=== PATIENT | male | born 1995 | race Caucasian/White ===

== ENCOUNTER 2017-03-13 23:14 | Emergency (ER) | payer OTHER ==
[~2017-03-13] VITALS: Ht 180.3 cm; Wt 86.5 kg
[2017-03-13 23:19] VITALS: TEMP 37.2; Ht 180.3 cm; Wt 86.5 kg
[2017-03-13] MEDS ORDERED: KETOROLAC TROMETHAMINE 30 MG/ML VIAL IV STA (23:40)
[2017-03-13] MEDS ORDERED: ONDANSETRON INJ 2 MG/ML 2 ML VIAL IV STA (23:40)
[2017-03-13 23:57] VITALS: O2SAT 100
--- NOTE | 2017-03-13 23:59 | EMERGENCY ROOM VISIT NOTE ---
History Report prepared by Romie: Shukri Shepherd Under the Supervision of: Dr. Peggy Palacios D.O. First contact with patient: 23:24 Chief Complaint: ABDOMINAL PAIN Stated Complaint: PELVIC PAIN - NAUSEA - STOMACH PAIN - WEAK History of Present Illness The patient is a 21 year old male who presents to the Emergency Room with complaints of constant abdominal pain beginning two days ago. The patient states that he has been really sick the past two days. He reports that when he stands for a while, he develops pelvic pain, nausea, hot flashes, cold flashes, and diarrhea. The patient states he must sit upright for his symptoms to be alleviated. He notes that his throat is sore when he coughs. He states that he eats but does not feel hungry, and it does not hurt when he eats. The patient denies abnormal discharge from his penis, back pain, constipation, dysuria, urinary symptoms, and strain in the past couple days. He also denies a history of STIs, UTIs, and hernias. The patient does describe a pimple on the scrotum that has been producing pus. The patient states that he does not have a history of health problems. Source of History: patient Onset: two days ago Position: abdomen Timing: constant Modifying Factors (Relieving): other (sitting upright) Associated Symptoms: + chills, + sorethroat (when coughing), + cough, + nausea, + diarrhea, No back pain, No urinary symptoms Note: Associated symptoms: pelvic pain, decreased appetite, and hot flashes Denies: abnormal discharge from his penis, constipation, and strain in the past couple days. Review of Systems See HPI for pertinent positives & negatives. A total of 10 systems reviewed and were otherwise negative. Past Medical & Surgical Medical Problems: (1) No Known Active Medical Problems Family History Patient reports no known family medical history. Social History Smoking Status: Never Smoker Smokeless Tobacco Use: No Alcohol Use: none Marital Status: in relationship Occupation Status: employed Current/Historical Medications Scheduled Sulfamethoxazole-Trimethoprim (Bactrim Ds 800MG/160MG), 1 TAB PO BID Allergies Coded Allergies: No Known Allergies (Unverified , 03/13/17) Physical Exam Vital Signs Date Time Temp Pulse Resp B/P (MAP) Pulse Ox O2 Delivery O2 Flow Rate FiO2 03/14/17 03:43 105 22 121/75 96 03/14/17 02:30 96 18 109/55 97 Room Air 03/14/17 02:00 96 18 117/67 97 Room Air 03/14/17 01:44 101 18 105/44 97 Room Air 03/14/17 01:16 102 18 104/49 97 Room Air 03/14/17 00:08 96 18 99/58 100 Room Air 03/14/17 00:00 101 03/13/17 23:57 100 Room Air 03/13/17 23:19 37.2 109 18 113/61 98 Room Air Physical Exam HEENT: Head - normocephalic and atraumatic Pupils are equal, round, and reactive to light. Extraocular eye muscles are intact, and sclera are anicteric. Nose - moist nasal mucosa without discharge. Mouth - moist buccal mucosa. Oropharynx is nonerythematous and there is no tonsillar exudate or edema noted. Neck: Supple; no JVD, nuchal rigidity, cervical lymphadenopathy. Heart: Tachycardic rate and regular rhythm. There is a normal S1 and S2 with no murmurs, clicks, or gallops appreciated. Lungs: Clear to auscultation bilaterally with no wheezes, rales, or rhonchi. Abdomen: Soft, and nondistended, with good bowel sounds. There is mild periumbilical pain with palpation. There are no palpable pulsatile masses or hepatosplenomegaly. There is no guarding, rigidity, or rebound noted. Genital: Lymphadenopathy and pain bilaterally to the inguinal canal, unremarkable penis. Left scrotum: Erythema, edema, indurated, hot with palpable fluid collection with a mueller. No pain with palpation to the right testicle and epididymis. Mild pain to palpation to the left testicle and epididymis. Extremities: No evidence of cyanosis, clubbing, or edema. There are easily palpable peripheral pulses. Skin: hot and diaphoretic with good turgor and no rashes. Medical Decision & Procedures Laboratory Results 03/13/17 23:58 Red Blood Count 4.85, Mean Corpuscular Volume 85.8, Mean Corpuscular Hemoglobin 30.1, Mean Corpuscular Hemoglobin Concent 35.1, Mean Platelet Volume 8.6, Neutrophils (%) (Auto) 82.4, Lymphocytes (%) (Auto) 8.6, Monocytes (%) (Auto) 8.4, Eosinophils (%) (Auto) 0.2, Basophils (%) (Auto) 0.1, Neutrophils # (Auto) 13.82, Lymphocytes # (Auto) 1.45, Monocytes # (Auto) 1.41, Eosinophils # (Auto) 0.04, Basophils # (Auto) 0.01 03/13/17 23:58 Test 03/13/17 23:46 03/13/17 23:58 03/14/17 00:07 Urine Color DK YELLOW Urine Appearance CLEAR (CLEAR) Urine pH 6.0 (4.5-7.5) Urine Specific Rickreall 1.035 (1.000-1.030) Urine Protein 1+ (NEG) Urine Glucose (UA) NEG (NEG) Urine Ketones 3+ (NEG) Urine Occult Blood 1+ (NEG) Urine Nitrite NEG (NEG) Urine Bilirubin NEG (NEG) Urine Urobilinogen NEG (NEG) Urine Leukocyte Esterase NEG (NEG) Urine WBC (Auto) 1-5 /hpf (0-5) Urine RBC (Auto) 0-4 /hpf (0-4) Urine Hyaline Casts (Auto) 1-5 /lpf (0-5) Urine Epithelial Cells (Auto) 10-20 /lpf (0-5) Urine Bacteria (Auto) NEG (NEG) White Blood Count 16.78 K/uL (4.8-10.8) Red Blood Count 4.85 M/uL (4.7-6.1) Hemoglobin 14.6 g/dL (14.0-18.0) Hematocrit 41.6 % (42-52) Mean Corpuscular Volume 85.8 fL (80-100) Mean Corpuscular Hemoglobin 30.1 pg (25-34) Mean Corpuscular Hemoglobin Concent 35.1 g/dl (32-36) Platelet Count 227 K/uL (130-400) Mean Platelet Volume 8.6 fL (7.4-10.4) Neutrophils (%) (Auto) 82.4 % Lymphocytes (%) (Auto) 8.6 % Monocytes (%) (Auto) 8.4 % Eosinophils (%) (Auto) 0.2 % Basophils (%) (Auto) 0.1 % Neutrophils # (Auto) 13.82 K/uL (1.4-6.5) Lymphocytes # (Auto) 1.45 K/uL (1.2-3.4) Monocytes # (Auto) 1.41 K/uL (0.11-0.59) Eosinophils # (Auto) 0.04 K/uL (0-0.5) Basophils # (Auto) 0.01 K/uL (0-0.2) RDW Standard Deviation 40.0 fL (36.4-46.3) RDW Coefficient of Variation 12.7 % (11.5-14.5) Immature Granulocyte % (Auto) 0.3 % Immature Granulocyte # (Auto) 0.05 K/uL (0.00-0.02) Prothrombin Time 12.0 SECONDS (9.0-12.0) Prothromb Time International Ratio 1.1 (0.9-1.1) Activated Partial Thromboplast Time 32.8 SECONDS (21.0-31.0) Partial Thromboplastin Ratio 1.3 Anion Gap 8.0 mmol/L (3-11) Est Creatinine Clear Calc Drug Dose 115.0 ml/min Estimated GFR () 112.2 Estimated GFR (Non- 96.8 BUN/Creatinine Ratio 9.6 (10-20) Calcium Level 9.1 mg/dl (8.5-10.1) Total Bilirubin 1.3 mg/dl (0.2-1) Aspartate Amino Transf (AST/SGOT) 15 U/L (15-37) Alanine Aminotransferase (ALT/SGPT) 27 U/L (12-78) Alkaline Phosphatase 61 U/L (45-117) Total Protein 8.0 gm/dl (6.4-8.2) Albumin 4.1 gm/dl (3.4-5.0) Globulin 3.9 gm/dl (2.5-4.0) Albumin/Globulin Ratio 1.1 (0.9-2) Bedside Lactic Acid Venous 0.88 mmol/L (0.90-1.70) Laboratory results per my review. Medications Administered Medications (Trade) Dose Ordered Sig/Ronal Route Start Time Stop Time Status Last Admin Dose Admin Ketorolac Tromethamine (Toradol Inj) 30 mg NOW STAT IV 03/13/17 23:40 03/13/17 23:42 DC 03/14/17 00:13 30 MG Ondansetron HCl (Zofran Inj) 4 mg NOW STAT IV 03/13/17 23:40 03/13/17 23:42 DC 03/14/17 00:13 4 MG Sodium Chloride 1,000 ml @ 250 mls/hr Q4H STAT IV 03/14/17 00:44 03/14/17 04:43 DC 03/14/17 01:15 250 MLS/HR Sodium Chloride 500 ml @ 999 mls/hr Q31M STAT IV 03/14/17 00:44 03/14/17 01:14 DC 03/14/17 01:15 999 MLS/HR Trimethoprim/ Sulfamethoxazole (Septra Ds 800/ 160MG Tab) 1 tab NOW STAT PO 03/14/17 03:16 03/14/17 03:17 DC 03/14/17 03:39 1 TAB Oxycodone/ Acetaminophen (Percocet 5/ 325MG Home Pack) 1 homepack UD ONCE PO 03/14/17 03:30 03/14/17 03:31 DC 03/14/17 03:39 1 HOMEPACK Procedure 2340: Ordered Zofran Inj 4mg IV, Toradol Inj 30mg IV 0044: Ordered Sodium Chloride 500 ml @ 999 mls/hr IV, Sodium Chloride 1000 ml @ 999 mls/hr IV. 0316: Ordered Trimethoprim/Sulfamethoxazole 1 tab PO 0330: Ordered Oxycodone/Acetaminophen 1 homepack PO Incision & Drainage Indication: Abscess. Location: left inferior scrotum Verbal consent was obtained. A time out was taken and the correct patient and site identified. The skin was prepped with betadine and a sterile field set. The abscess cavity was entered with hemostats and thick, white/yellow puss material expressed. Copious irrigation was performed using saline. The wound was explored for foreign bodies and none found. Debridement was not performed. Detailed wound care instructions and signs and symptoms of worsening infection reviewed with the patient. No complications and the patient tolerated the procedure well. ED Course 2327: The patient was evaluated in room B08. A complete history and physical examination were performed. Nursing notes and previous electronic medical records were reviewed. IV lock was established and labs were drawn as above. 2340: Ordered Zofran Inj 4mg IV, Toradol Inj 30mg IV. The patient went for ultrasound of the scrotum. 0044: Ordered Sodium Chloride 500 ml @ 999 mls/hr IV, Sodium Chloride 1000 ml @ 999 mls/hr IV. 0144: I discussed the patient's case with Dr. Son, Urology. He suggested opening the tract more and put the patient on antibiotics. 0302: Refer to the ED procedure for the scrotal I&D. After the procedure, the patient felt better. I discussed findings and results with him. He verbalized agreement of the treatment plan. The patient will discharged home when he receives his medication. 0316: Ordered Trimethoprim/Sulfamethoxazole 1 tab PO 0330: Ordered Oxycodone/Acetaminophen 1 homepack PO Medical Decision The patient is a 21 year old male who presents to the ED with pelvic pain. Differential diagnosis includes scrotal cellulitis, scrotal abscess, orchitis, epididymitis, Kathryn Gangrene Lab results show: WBC of 16.7, 80% neutrophil, stable H&H, normal lactic acid, LFTs were normal except a total bilirubin of 108, glucose of 111, renal normal, coagulants normal. Urinalysis: 3+ ketone and 1+ blood. The patient has noted pelvic pain over the past 2 days. There was an area on the left side of his scrotum that he had squeezed open a couple of times to get some pus out. He became more concerned when he developed pain up into the left inguinal canal. The patient did have a leukocytosis and chills. The abscess was opened up more with hemostats and a moderate amount of pus drained out. The patient will be started on Bactrim. I have asked the patient to follow-up with urology if the pain persists. If symptoms worsen, they should return here to the emergency department. Consults Time Called: 139 Consulting Physician: Dr. Son, Urology Returned Call: [phone] I discussed the patient's case with Dr. Son, Urology. He suggested opening the tract more and put the patient on antibiotics. Impression Primary Impression: Scrotal abscess Scribe Attestation The scribe's documentation has been prepared under my direction and personally reviewed by me in its entirety. I confirm that the note above accurately reflects all work, treatment, procedures, and medical decision making performed by me. Departure Information Dispostion Home / Self-Care Prescriptions Sulfamethoxazole-Trimethoprim (Bactrim Ds 800MG/160MG) 1 Tab Tab 1 TAB PO BID, #20 TAB Prov: Peggy Palacios D.O. 03/14/17 Referrals No Doctor, Assigned (PCP) Devin Son M.D. Forms HOME CARE DOCUMENTATION FORM, IMPORTANT VISIT INFORMATION Patient Instructions My [facility] Additional Instructions Rest No work for 2 days Take bactrim - 1 tab. every 12 hours for 10 days. Do Sitz bath twice a day Percocet - 1 tab every 4 hours for pain Return to the ER for worsening symptoms Follow up with Urology if fever and pain persist
[2017-03-14 00:16] LABS: BASO % 0.1 %; BASO ABS # 0.01 K/uL (0-0.2); COMPLETE YES; EOS % 0.2 %; HEMATOCRIT 41.6 % (42-52); IG% 0.3 %; LYMPH % 8.6 %; LYMPH ABS # 1.45 K/uL (1.2-3.4); MEAN CELL VOLUME 85.8 fL (80-100); MEAN CORPUSCULAR HEMOGLOBIN 30.1 pg (25-34); MEAN CORPUSCULAR HGB CONC 35.1 g/dl (32-36); MEAN PLATELET VOLUME 8.6 fL (7.4-10.4); MONO % 8.4 %; NEUT % 82.4 %; PLATELET COUNT 227 K/uL (130-400); RED BLOOD COUNT 4.85 M/uL (4.7-6.1); WHITE BLOOD COUNT 16.78 K/uL (4.8-10.8)
[2017-03-14 00:18] LABS: URINE APPEARANCE CLEAR (CLEAR); URINE COLOR DK YELLOW; URINE NITRITE NEG (NEG); URINE SPECIFIC GRAVITY 1.035 (1.000-1.030); UROBILINOGEN NEG (NEG); ZZUR CULT IF INDIC CLEAN CATCH NO
[2017-03-14 00:23] LABS: MANUAL MICROSCOPIC REQUIRED? NO; REVIEW REQ? NO; URINE BILIRUBIN NEG (NEG)
[2017-03-14 00:28] LABS: INR 1.1 (0.9-1.1); PARTIAL THROMBOPLASTIN RATIO 1.3
[2017-03-14 00:34] LABS: BUN/CREATININE RATIO 9.6 (10-20); CALCIUM 9.1 mg/dl (8.5-10.1); CREATININE 1.1 mg/dl (0.60-1.40); POTASSIUM 3.3 mmol/L (3.5-5.1)
[2017-03-14 00:37] LABS: ALB/GLOB RATIO 1.1 (0.9-2)
[2017-03-14] MEDS ORDERED: SODIUM CHLORIDE 0.9% 500ML 500 ML IV STA (00:44)
[2017-03-14] MEDS ORDERED: SODIUM CHLORIDE 0.9% 1000ML 1,000 ML IV STA (00:44)
[2017-03-14] MEDS ORDERED: SULFAMETHOXAZOLE/TRIMETHOPRIM DS 800/160MG TAB PO STA (03:16)
[2017-03-14] MEDS ORDERED: SULF800T23 PO (03:23)
[2017-03-14] MEDS ORDERED: PERCOCET HOME PACK PO ONE (03:30)
[2017-03-14 03:43] VITALS: BP 121/75; PULSE 105; O2SAT 96
--- NOTE | 2017-03-14 08:10 | DIAGNOSTIC IMAGING REPORT ---
SCROTAL ULTRASOUND CLINICAL HISTORY: Pelvic pain and nausea. Evaluate for scrotal abscess. COMPARISON STUDY: None. TECHNIQUE: Grayscale and color and duplex Doppler sonography of the scrotum was performed. FINDINGS: The right testis measures 4.8 x 2.2 x 2.6 cm and the left measures 4.5 x 1.7 x 2.7 cm. There is no testicular mass. Color flow within each testis is symmetric. There is no convincing evidence for epididymitis. However, there was scrotal wall edema, left greater than right. In addition, note was made of a complex 1.8 cm hypoechoic focus located inferior to the left testis. IMPRESSION: 1. Complex 1.8 cm hypoechoic left inferior scrotal fluid collection. While nonspecific, an abscess is favored. A hematoma could appear similar. 2. Normal sonographic appearance of the testes. 3. Scrotal wall edema, left greater than right. 4. Possible small left varicocele. Electronically signed by: Jason Gil M.D. 03/14/2017 8:08 AM Dictated Date/Time: 03/14/2017 8:04 AM
== END 2017-03-14 03:44 | disposition home or self-care (01) ==
LOC: C.EDB 23:16
DX: N49.2 Inflammatory disorders of scrotum (principal)